=== PATIENT | male | born 1975 | race Caucasian/White ===

== ENCOUNTER 2022-01-17 13:36 | Outpatient (CLI) | payer MEDICAID, SELFPAY ==
--- NOTE | 2022-01-17 13:57 | MR_ITS ---
WS: [id number] MRI LUMBAR SPINE NONCONTRAST TECHNIQUE: Sagittal T1, T2 and STIR imaging. Axial T1 and T2 imaging. CLINICAL INFORMATION: LUMBAR RADICULOPATHY COMPARISON: None. FINDINGS: Mild lumbar curve. No acute compression. Grade 1 anterolisthesis L5 on S1 measuring 5 mm. 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 L1-L2: Mild annular bulging. Spinal canal and foramen are patent. Mild facet arthropathy. L2-L3: Mild disc bulging with slight effacement of the ventral thecal sac. Mild facet arthropathy. Sp inal canal and foramen are patent. L3-L4: Slight annular bulging. Moderate facet arthropathy. Spinal canal is patent. Mild LEFT foramina l narrowing. L4-L5: Mild annular bulging with slight effacement of the ventral thecal sac. Mild to moderate RIGHT foraminal narrowing with slight impingement on the exiting RIGHT L4 nerve root. Mild LEFT foraminal n arrowing. Moderate facet arthropathy. L5-S1: Grade 1 anterolisthesis. LEFT eccentric disc bulging with impingement traversing LEFT greater than RIGHT S1 nerve roots in the subarticular recess. Advanced facet arthropathy at this level with p eriarticular edema. LEFT eccentric disc osteophyte complex with moderate LEFT foraminal narrowing and impingement on the exiting LEFT L5 nerve root. Mild RIGHT foraminal narrowing. Small disc protrusions in the mid and lower thoracic spine more prominent at T8-T9 and T9-T10 with mi ld central canal stenosis. MR/MR lumbar spine wo con* [id number] IMPRESSION: 1. Grade 1 anterolisthesis L5 on S1 with mild central canal stenosis. Impingem ent traversing LEFT greater than RIGHT S1 nerve roots in the subarticular reces s. Recommend correlation for S1 nerve root symptoms. 2. Moderate LEFT L5-S1 foraminal narrowing impinges the exiting LEFT L5 nerve root. 3. Mild RIGHT L4-L5 foraminal narrowing with small RIGHT foraminal protrusion and slight impingement on the exiting right L4 nerve root. 4. Mild to moderate facet arthropathy L3-L4 and L4-L5. Advanced facet arthropa thy L5-S1 with periarticular edema.
== END 2022-01-17 13:37 | disposition home or self-care (01) ==
LOC: RAD 13:48
PROVIDERS: PCP Family Medicine; Visit Provider Nurse Practitioner Family
DX: M54.16 Radiculopathy, lumbar region (principal); M48.07 Spinal stenosis, lumbosacral region; M47.816 Spondylosis without myelopathy or radiculopathy, lumbar region; M47.817 Spondylosis without myelopathy or radiculopathy, lumbosacral region
CPT/HCPCS: 72148

== ENCOUNTER → 2025-10-06 12:47 | Outpatient (BNVA) | payer MEDICAID, SELFPAY | PROVIDERS: PCP Family Medicine; Visit Provider Dermatology | DX: C44.329 Squamous cell carcinoma of skin of other parts of face (principal) | CPT/HCPCS: 12052; 17311 ==